=== PATIENT | male | born 1965 | race Hispanic/Latino ===

== ENCOUNTER 2018-02-15 08:28 | Outpatient (CLI) | payer OTHER ==
--- NOTE | 2018-02-15 11:10 | ULT ---
ABDOMINAL ULTRASOUND: HISTORY: Secondary polycythemia. Check spleen size. Evaluate for hydronephrosis. Real-time images of the upper abdomen demonstrate a [id number] gallbladder. The common duct i s 65 mm. The technologist reports a negative ultrasound Souza's sign. The liver measures 17.3 cm i n length. No focal masses. The spleen measures 12.5 cm in length and approximately 5.8 cm in diamet er. The left kidney shows a slightly prominent extrarenal pelvis actually involving both the right and le ft kidneys. No hydronephrosis. The pancreas is obscured. The abdominal aorta and IVC regions are a lso obscured. IMPRESSION: 1. Spleen size of 12.2 cm. 2. No evidence of obstruction of either kidney. POS: [facility]
== END 2018-02-15 08:29 | disposition home or self-care (01) ==
LOC: ULT 08:28
PROVIDERS: ATTEND Internal Medicine Medical Oncology
DX: N13.30 Unspecified hydronephrosis (principal); D75.1 Secondary polycythemia
CPT/HCPCS: 76700

== ENCOUNTER 2021-12-02 09:11 | Outpatient (CLI) | payer OTHER | END 2021-12-02 09:12 | disposition home or self-care (01) | LOC: SCSMRI 09:11 | PROVIDERS: ATTEND Orthopaedic Surgery | DX: M25.331 Other instability, right wrist (principal); M65.831 Other synovitis and tenosynovitis, right forearm; J34.89 Other specified disorders of nose and nasal sinuses; S63.8X1A Sprain of other part of right wrist and hand, initial encounter | CPT/HCPCS: 70210 ==

== ENCOUNTER 2022-01-03 06:39 | Day surgery (SDC) | payer OTHER ==
[2021-12-27 10:57] VITALS: BMI 30.8
[2022-01-03] MEDS ORDERED: Midazolam HCl 2 mg/2 ml Vial ONE (07:46)
[2022-01-03] MEDS ORDERED: EPINEPHrine 1 MG/ML AMP ONE ×2 (07:46→09:34)
[2022-01-03] MEDS ORDERED: Bupivacaine PF 0.5% 30 ML VIAL ONE ×2 (07:46→09:34)
[2022-01-03 08:27] LABS: #Eosinphils 0.3 thou/uL (0.0-0.7); #Lymphocytes 1.9 thou/uL (1.20-3.40); #Monocytes 0.6 thou/uL (0.11-0.59); #Neutrophils 3.1 thou/uL (1.40-6.50); %Basophils 0.8 % (0.0-1.0); %Eosinophils 4.4 % (0.0-10.0); %Lymphocytes 32.4 % (21.0-51.0); %Monocytes 9.4 % (0.0-10.0); %Neutrophils 53.1 % (42.0-75.0); Hemoglobin 16.8 g/dL (14.0-18.0); Mean Corpuscular HGB CONC 32.5 g/dL (32.0-36.0); Mean Corpuscular Hemoglobin 31.2 pg (27.0-31.0); Mean Corpuscular Volume 95.8 fL (78.0-98.0); Mean Platelet Volume 8.2 fL (7.4-10.4); Platelet Count 242 thou/uL (130-400); White Blood Cell (WBC) Count 5.9 thou/uL (4.8-10.8)
[2022-01-03] MEDS ORDERED: Neomycin-Polymyxin 1 ML AMP ONE (09:34)
[2022-01-03] MEDS ORDERED: Betamet Acet/Betamet Na Ph 30 MG/5 ML VIAL ONE (09:34)
[2022-01-03] MEDS ORDERED: Thrombin 5000 UNITS/5 ML VIAL ONE (09:35)
[2022-01-03] MEDS ORDERED: ceFAZolin 2 GM/Dextrose 50 ML IVPB ONE (10:15)
[2022-01-03] MEDS ORDERED: Lidocaine 1% PF 5 ML VIAL ONE (10:43)
[2022-01-03] MEDS ORDERED: PROPOFOL 200 MG/20 ML VIAL ONE (10:43)
[2022-01-03] MEDS ORDERED: Ondansetron PF 4 MG/2 ML Vial ONE (10:43)
[2022-01-03] MEDS ORDERED: Bupivacaine HCl 0.5%/Epinephrine 1:200,000/PF 30 ml Vial ONE (10:43)
[2022-01-03] MEDS ORDERED: PHENYLEPHRINE-NS 100 MCG/ML 10 ML SYRINGE ONE (10:43)
[2022-01-03] MEDS ORDERED: Fentanyl 250 MCG/5 ML VIAL ONE (12:58)
[2022-01-03] MEDS ORDERED: HYDROcodone/Acetaminophen 5/325 mg Tablet ONE (16:01)
[2022-01-03] MEDS ORDERED: Ondansetron ODT 4 MG TAB ONE (17:06)
== END 2022-01-03 17:31 | disposition home or self-care (01) ==
LOC: SDC 06:39
PROVIDERS: ATTEND Orthopaedic Surgery Hand Surgery
PROC: 3E0T3BZ Introduction of Anesthetic Agent into Peripheral Nerves and Plexi, Percutaneous Approach (ICD-10-PCS; principal; 2022-01-03)
PROC: 0RQN0ZZ Repair Right Wrist Joint, Open Approach (ICD-10-PCS; principal; 2022-01-03)
PROC: 0LX50ZZ Transfer Right Lower Arm and Wrist Tendon, Open Approach (ICD-10-PCS; principal; 2022-01-03)
PROC: 0RBN4ZZ Excision of Right Wrist Joint, Percutaneous Endoscopic Approach (ICD-10-PCS; principal; 2022-01-03)
DX: S63.511A Sprain of carpal joint of right wrist, initial encounter (principal); M65.88 Other synovitis and tenosynovitis, other site; M94.231 Chondromalacia, right wrist
CPT/HCPCS: 71045; 76000; 85025; 93005; 93010; C1713; C1769; J0171; J0690; J0702; J2250; J3010; Q0162; S0020

== ENCOUNTER 2022-03-14 15:18 | Outpatient (CLI) | payer SELFPAY ==
[2022-03-15 00:09] LABS: SARS-CoV-2 PCR by NAA Not Detected (NotDetected)
== END 2022-03-14 15:19 | disposition home or self-care (01) ==
LOC: LABBT 15:18
PROVIDERS: ATTEND Orthopaedic Surgery Hand Surgery
DX: Z20.822 Contact with and (suspected) exposure to COVID-19 (principal)
CPT/HCPCS: U0003; U0005

== ENCOUNTER 2022-03-18 08:18 | Day surgery (SDC) | payer OTHER ==
[2022-03-13 09:54] VITALS: BMI 30.8
[2022-03-18] MEDS ORDERED: fentaNYL Citrate/PF 100 MCG/2 ML SYRINGE ONE (11:45)
[2022-03-18] MEDS ORDERED: ceFAZolin (BATCH) 2 GM/100 ML BAG ONE (11:45)
[2022-03-18] MEDS ORDERED: Bacitracin Zinc Ointment 30 gm TUBE ONE (11:49)
[2022-03-18] MEDS ORDERED: Bupivacaine PF 0.5% 30 ML VIAL ONE (11:49)
[2022-03-18] MEDS ORDERED: Ondansetron PF 4 MG/2 ML Vial ONE (11:55)
[2022-03-18] MEDS ORDERED: Lidocaine 1% PF 5 ML VIAL ONE (11:55)
[2022-03-18] MEDS ORDERED: Dexamethasone 20 MG/5 ML VIAL ONE (11:55)
[2022-03-18] MEDS ORDERED: Ketorolac Tromethamine 30 MG/ML VIAL ONE (11:55)
[2022-03-18] MEDS ORDERED: PROPOFOL 200 MG/20 ML VIAL ONE (11:55)
[2022-03-18] MEDS ORDERED: HYDROcodone/Acetaminophen 5/325 mg Tablet ONE (14:41)
== END 2022-03-18 15:13 | disposition home or self-care (01) ==
LOC: SDC 08:18
PROVIDERS: ATTEND Orthopaedic Surgery Hand Surgery
PROC: 0RPN04Z Removal of Internal Fixation Device from Right Wrist Joint, Open Approach (ICD-10-PCS; principal; 2022-03-18)
DX: T84.84XA Pain due to internal orthopedic prosthetic devices, implants and grafts, initial encounter (principal); Y79.1 Therapeutic (nonsurgical) and rehabilitative orthopedic devices associated with adverse incidents
CPT/HCPCS: 76000; J0690; J1100; J1885; J2405; J2704; S0020